=== PATIENT | female | born 1955 | race Two or more races ===

== ENCOUNTER → 2024-02-27 | Outpatient (CLI) | payer MEDICARE, MEDICAID, SELFPAY ==
[2024-02-27 10:38] LABS: Glucose Estimated Average 160 mg/dL (80-131); Hemoglobin A1C 7.2 % Hgb (4.8-6.0)
== END | disposition home or self-care (01) ==
PROVIDERS: PCP Family Medicine; Referring Provider Family Medicine; Visit Provider Family Medicine
DX: E11.65 Type 2 diabetes mellitus with hyperglycemia (principal)
CPT/HCPCS: 36415; 83036

== ENCOUNTER 2024-03-11 11:36 | Inpatient (IN) | payer MEDICARE, MEDICAID, SELFPAY ==
[2024-03-11] VITALS (10 sets, daily range): BP systolic 110–152; BP diastolic 68–79; PULSE 86–105; RESP 17–99; TEMP 36.1–37.2; O2SAT 93–98; BMI 31.3
--- NOTE | 2024-03-11 11:54 | XR_ITS ---
Examination: CT brain head without contrast. 2-D sagittal coronal reconstructions Date and time of exam:March 11, 2024 1202 hours INDICATIONS: Patient tripped and fell today with injury to the head, head pain CTDI: vol (mGy):45.7 DLP: (mGycm):942 Technique: Multiple CT axial sections of the brain have been obtained, 5 mm slice thickness. Contrast has not been administered. 2-D sagittal, coronal reconstructions have been obtained Low dose protocols were performed. One or more of the following dose reduction techniques were used; automated exposure control, adjustment of the mA and/or KV according to patient size, use of iterative reconstruction technique. Findings: No significant ventricular enlargement. Soft tissue left posterior scalp swelling Posterior right and left cerebellar tentorium, coronal image 33 shows mild thickening, 2 mm No mass effect or midline shift Basal cisterns are not remarkable. Fourth ventricle is midline. Cranial vault intact. Impression: Suspicious for mild subdural hemorrhage involving the posterior right and left cerebellar tentorium Recommend close clinical observation and short-term follow-up 02/13/[address] brain scan No mass effect
--- NOTE | 2024-03-11 11:54 | XR_ITS ---
Examination: CT cervical spine without contrast 2-D sagittal reconstructions 2-D coronal reconstructions 3-D reconstructions. Exam date and time:March 11, 2024 1202 hours INDICATIONS: Patient fell today with injury to the head and neck, head pain neck pain CTDI:vol (mGy) 7.37 DLP: (mGycm) 148 Technique: Multiple 2 mm axial sections of the cervical spine have been obtained. The coronal and sagittal reconstructions have been obtained. 3-D reconstructions have been obtained. Low dose protocols were performed. One or more of the following dose reduction techniques were used; automated exposure control, adjustment of the mA and/or KV according to patient size, use of iterative reconstruction technique. Findings: Axial sections demonstrate intact base of the skull. C1 exhibit satisfactory relationship to the odontoid. No acute cervical vertebral body fracture seen. Alignment posterior spinous processes satisfactory. Impression: No acute cervical fracture.
--- NOTE | 2024-03-11 12:35 | PD.EDRME ---
Rapid Medical Screening Exam RME Arrival date/time: 03/11/24 11:36 69-year-old female presents emergency department with complaints of a slip and fall falling and hitting posterior head. + Hematoma noted to posterior head. I have greeted and performed a focused initial assessment of this patient. Initial appropriate labs ordered at this time. A comprehensive ED assessment and evaluation of the patient and analysis of all test and completion of medical decision making process will be conducted by additional ED provider. Chief Complaint: Fall Time Seen by Provider: 03/11/24 11:44 Vital signs: Vital Signs Temperature 98.3 F 03/11/24 11:46 Pulse Rate 94 03/11/24 11:46 Respiratory Rate 19 03/11/24 11:46 Blood Pressure 123/68 03/11/24 11:46 Pulse Oximetry (%) 98 03/11/24 11:46 Oxygen Delivery Method Room Air 03/11/24 11:46
--- NOTE | 2024-03-11 12:36 | XR_ITS ---
Examination: PA lateral chest 2 views TECHNIQUE: Upright PA lateral chest 2 views Exam date and time: March 11, 2024 1304 hours INDICATIONS: Patient tripped and fell today with injury to the chest, chest pain FINDINGS: Normal heart size No pneumothorax Minor subsegmental atelectasis left lower lung zone Old deformity left clavicle Increased AP dimension chest with mild kyphosis dorsal spine IMPRESSION: No pneumothorax pulmonary contusion or hemothorax
--- NOTE | 2024-03-11 12:36 | EKG_ITS ---
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
[2024-03-11 12:54] LABS: Basophils # (Auto) 0.1 Thou/mm3 (0.0-0.2); Basophils % (Auto) 1 % (0-2.5); Eosinophils # (Auto) 0.1 Thou/mm3 (0.0-0.5); Eosinophils % (Auto) 1 % (0-10); Hemoglobin 13.9 g/dL (12.0-16.0); Immature Granulocytes % (Auto) 0 % (0-0); Immature Granulocytes Auto 0.03 Thou/mm3 (0.00-0.00); Lymphocytes # (Auto) 1.4 Thou/mm3 (1.0-4.8); Lymphocytes % (Auto) 15 % (10-50); Mean Corpuscular HGB Conc 33.1 g/dl (31.0-37.0); Mean Corpuscular Hemoglobin 30.1 pg (25.0-35.0); Mean Corpuscular Volume 91 fL (80-100); Monocytes # (Auto) 0.6 Thou/mm3 (0.0-0.8); Monocytes % (Auto) 6 % (0-12); Neutrophils # (Auto) 7.6 Thou/mm3 (1.8-7.7); Neutrophils % (Auto) 78 % (37-80); Nucleated Red Blood Cell % 0 /100 WBC (0); Platelet Count 249 Thou/mm3 (140-440); Red Blood Count 4.62 Miln/mm3 (4.00-5.20); White Blood Count 9.7 Thou/mm3 (3.6-11.0)
--- NOTE | 2024-03-11 12:58 | EDNOTE_ITS ---
ED Fall Injury RME/HPI General Chief Complaint: Fall Stated Complaint: TRIP/FALL HIT BACK OF HEAD, NO LOC Time Seen by Provider: 03/11/24 11:44 Arrival date/time: 03/11/24 11:36 RME / HPI RME / HPI Narrative: 03/11/24 11:36 69-year-old female presents emergency department with complaints of a slip and fall falling and hitting posterior head. + Hematoma noted to posterior head. I have greeted and performed a focused initial assessment of this patient. Initial appropriate labs ordered at this time. A comprehensive ED assessment and evaluation of the patient and analysis of all test and completion of medical decision making process will be conducted by additional ED provider. DR. SARKAR MAIN ED EVALUATION 69 year old female presents to the ED for evaluation after fall today. States she was walking when she slipped and fell backwards, striking the back of her head on tile le in her home. States since the fall has had a headache, mostly to the back of her head, that is worse with turning her head. No other injuries or complaints reported. Patient denies any taking any blood thinners. Related Data Home Medications ?Medication ?Instructions ?Recorded ?Confirmed losartan 50 mg tablet 50 mg PO QDAY 03/16/18 03/11/24 alendronate 70 mg tablet (Fosamax) 70 mg PO QWEEK 05/14/18 03/11/24 atorvastatin 40 mg tablet 40 mg PO HS 06/17/23 03/11/24 celecoxib 200 mg capsule 200 mg PO DAILY 06/17/23 06/17/23 hydroxyzine HCl 25 mg tablet 25 mg PO Q12HR 06/17/23 06/17/23 semaglutide 1 mg/dose (4 mg/3 mL) 1 mg subcut QWEEK 06/17/23 06/17/23 subcutaneous pen injector (Ozempic) cholecalciferol (vitamin D3) 50 03/11/24 mcg (2,000 unit) capsule empagliflozin 12.5 mg-metformin tab 03/11/24 1,000 mg tablet (Synjardy) empagliflozin 12.5 mg-metformin tab 03/11/24 03/11/24 1,000 mg tablet (Synjardy) ferrous sulfate 325 mg (65 mg mg 03/11/24 iron) tablet Allergies Allergy/AdvReac Type Severity Reaction Status Date / Time No Known Allergies Allergy Verified 03/11/24 11:38 Review of Systems Review of Systems Narrative Review of Systems: GEN: No fever, no chills, no weight loss EYES: No discharge, no visual changes, no pain HEENT: +struck the back of head on tile le. No ear pain, no congestion, no sore throat PULM: No shortness of breath, no cough, no congestion CV: No chest pain, no dyspnea on exertion, no palpitations GI: No nausea, no vomiting, no diarrhea, no pain, no constipation : No frequency, no urgency, no dysuria MUSC/SKEL: No joint pain, no back pain SKIN: No rash PSYCH: No hallucinations, no depression HEME/LYMPH: No easy bleeding or bruising tendencies NEURO: No weakness, + headache Past Medical History Past Medical History NEUROLOGIC: Positive Migraine CARDIAC: Positive Cardiac Disorders, Hypercholesterolemia and Hypertension GASTROINTESTINAL: Positive Gastrointestinal Disorders and Gastroesophageal Reflux Disease GENITOURINARY: Positive Genitourinary Disorders (urinary frequency) MUSCULOSKELETAL: Positive Musculoskeletal Disorders and Arthritis ENDOCRINE: Positive Endocrine Disorders and Diabetes Mellitus Type 2 HEMATOLOGIC: Positive Anemia PSYCHO/SOCIAL: Positive Depression Family History FAMILY HISTORY: Positive Family Cardiac Disorders Social History SMOKING STATUS: Never smoker ED Exam Narrative Physical exam: GENERAL APPEARANCE: alert and oriented x 4, well-developed, well-nourished, no acute distress HEENT: Normocephalic, edema to the back of head, no deformity, ecchymosis consistent with developing hematoma; pupils equal, round, reactive to light; EOMI; mucous membranes pink, moist; oropharynx clear NECK: Supple LUNGS: CTABL; no wheezes, no rales, no rhonchi HEART: Regular rate, regular rhythm; normal S1, S2; no murmurs ABDOMEN: non distended; normal BS; soft, no tenderness, no guarding, no raymon ound; no masses, no organomegaly, no hernia BACK: no CVA tenderness EXTREMITIES: atraumatic; no edema NEUROLOGIC: awake; alert and oriented x4; cranial nerves II-XII grossly intact; no focal sensory or motor deficits PSYCHIATRIC: appropriate mood and affect SKIN: warm, dry, normal color; no rashes Course Course Course Narrative: 1305: I discussed todays head CT results with both patient and daughter at bedside. Advised we would monitor the patient and repeat the head CT in 2 hours. Quality Measures none Orders Category Date Time Status COVID-19 Screening Questionnaire NOW Care 03/11/24 18:20 Active Decision to Admit X1 Care 03/11/24 18:20 Completed EKG (ED ONLY) *Do not use* NOW Care 03/11/24 12:37 Completed Consult to Neurology / Tele-Neurology Stat Cons 03/11/24 18:19 Active Referral Care Management Routine Cons 03/11/24 15:[address] cervical spine wo con Stat Exams 03/11/24 11:[address] head/brain wo con Stat Exams 03/11/24 11:[address] head/brain wo con Stat Exams 03/11/24 15:19 Completed EKG (ED Only) Stat Exams 03/11/24 12:36 Draft XR chest 2V Stat Exams 03/11/24 12:36 Completed CBC Stat Lab 03/11/24 12:44 Completed CMP [Comprehensive Metabolic Panel] Stat Lab 03/11/24 12:44 Completed PT [Prothrombin Time with INR] Stat Lab 03/11/24 12:44 Completed Troponin I Stat Lab 03/11/24 12:44 Completed HYDROcodone*/APAP 5/325 [[place] 5/325] Med 03/11/24 14:59 Discontinued 1 tab PO X1 ONE Morphine Inj Med 03/11/24 13:04 Discontinued 2 mg IVP X1 ONE Ondansetron Inj [Zofran Inj] Med 03/11/24 13:04 Discontinued 4 mg IV X1 ONE Vital Signs Vital signs: Vital Signs Temperature 98.3 F 03/11/24 11:46 Pulse Rate 94 03/11/24 11:46 Respiratory Rate 19 03/11/24 11:46 Blood Pressure 123/68 03/11/24 11:46 Pulse Oximetry (%) 98 03/11/24 11:46 Oxygen Delivery Method Room Air 03/11/24 11:46 Pulse ox is 98% on room air which is adequate. Fall MDM Narrative MDM Narrative:: Mirella Darby am scribing for and in the presence of Dr. Sarkar. Patient data External records reviewed:: [facility] previous records (I reviewed ED visit on 05/04/2019) Clinical information provided by:: patient Social determinants that could affect healthcare access:: none Patient has the following chronic illnesses:: Hypertension, diabetes, hyperlipidemia How is presenting disease/condition affected by chronic disease/condition?: exacerbated by Evaluation data The following diagnostics were reviewed and interpreted by me:: lab results, radiology exam(s) and EKG tracing(s) (sinus rhythm, rate 74, no STEMI, no previous EKG for comparison,) Lab and/or radiology exams considered but not ordered:: None Interpretation Summary: Ordering Physician: Jordana Prince Date of Service: 03/11/24 Procedure(s): CT cervical spine wo con Accession Number(s): [id number] cc: Jacques Hair MD; Violet Garay MD; Jordana Prince~ Examination: CT cervical spine without contrast 2-D sagittal reconstructions 2-D coronal reconstructions 3-D reconstructions. Exam date and time:March 11, 2024 1202 hours INDICATIONS: Patient fell today with injury to the head and neck, head pain neck pain CTDI:vol (mGy) 7.37 DLP: (mGycm) 148 Technique: Multiple 2 mm axial sections of the cervical spine have been obtained. The coronal and sagittal reconstructions have been obtained. 3-D reconstructions have been obtained. Low dose protocols were performed. One or more of the following dose reduction techniques were used; automated exposure control, adjustment of the mA and/or KV according to patient size, use of iterative reconstruction technique. Findings: Axial sections demonstrate intact base of the skull. C1 exhibit satisfactory relationship to the odontoid. No acute cervical vertebral body fracture seen. Alignment posterior spinous processes satisfactory. Impression: No acute cervical fracture. Dictated By: Jacques Hair MD Signed By: <Electronically signed by Jacques Hair MD in OV> 03/11/24 1225 ==== Ordering Physician: Jordana Prince Date of Service: 03/11/24 Procedure(s): CT head/brain wo con Accession Number(s): [id number] cc: Jacques Hair MD; Violet Garay MD; Jordana Prince~ Examination: CT brain head without contrast. 2-D sagittal coronal reconstructions Date and time of exam:March 11, 2024 1202 hours INDICATIONS: Patient tripped and fell today with injury to the head, head pain CTDI: vol (mGy):45.7 DLP: (mGycm):942 Technique: Multiple CT axial sections of the brain have been obtained, 5 mm slice thickness. Contrast has not been administered. 2-D sagittal, coronal reconstructions have been obtained Low dose protocols were performed. One or more of the following dose reduction techniques were used; automated exposure control, adjustment of the mA and/or KV according to patient size, use of iterative reconstruction technique. Findings: No significant ventricular enlargement. Soft tissue left posterior scalp swelling Posterior right and left cerebellar tentorium, coronal image 33 shows mild thickening, 2 mm No mass effect or midline shift Basal cisterns are not remarkable. Fourth ventricle is midline. Cranial vault intact. Impression: Suspicious for mild subdural hemorrhage involving the posterior right and left cerebellar tentorium Recommend close clinical observation and short-term follow-up 02/13/[address] brain scan No mass effect Dictated By: Jacques Hair MD Signed By: <Electronically signed by Jacques Hair MD in OV> 03/11/24 1227 Procedure(s): XR chest 2V Accession Number(s): [id number] cc: Jacques Hair MD; Violet Garay MD; Jordana Prince~ Examination: PA lateral chest 2 views TECHNIQUE: Upright PA lateral chest 2 views Exam date and time: March 11, 2024 1304 hours INDICATIONS: Patient tripped and fell today with injury to the chest, chest pain FINDINGS: Normal heart size No pneumothorax Minor subsegmental atelectasis left lower lung zone Old deformity left clavicle Increased AP dimension chest with mild kyphosis dorsal spine IMPRESSION: No pneumothorax pulmonary contusion or hemothorax Dictated By: Jacques Hair MD Medications / Prescriptions Medications or Prescriptions considered but not ordered:: None Medication administrations:: Medication Administration History Acetaminophen (Acetaminophen 325 Mg Tablet) 650 mg PO Q6H PRN PRN Reason: Fever >100.3 or Pain 1-3 Stop: 04/10/24 19:39 Hydrocodone Bitart/Acetaminophen (Hydrocodone/Apap 5/325 Tablet) 1 tab PO Q4HR PRN PRN Reason: PAIN SCALE 4-10(Mod-Sev Stop: 03/16/24 19:39 Albuterol/Ipratropium (Albuterol/Ipratropium (Duoneb) Rt Yoanna 3 Ml Nebu) 3 ml INH Q2HR PRN PRN Reason: SHORTNESS OF BREATH OR WHEEZE Stop: 04/10/24 19:39 Atorvastatin Calcium (Atorvastatin Calcium 20 Mg Tablet) 40 mg PO HS DEBBIE Stop: 04/10/24 20:59 Last Admin: 03/11/24 20:49 Dose: 40 mg Documented By: MICHAEL Dextrose (Dextrose 50%-Water Inj 50 Ml Syringe) 50 ml IV Q15MIN PRN PRN Reason: BG <50 OR BG <70 & pt unresponsive Stop: 04/10/24 20:03 Glucagon (Glucagon Inj 1 Mg Vial) 1 mg IM Q15MIN PRN PRN Reason: BG <70, and no IV access Insulin Human Lispro (Insulin Lispro (Admelog) 1 Unit/0.01 Ml Unit) 0 unit SC [facility]; Protocol Stop: 04/10/24 20:59 Last Admin: 03/11/24 20:55 Dose: 4 unit Documented By: MICHAEL Co-signed By: JAZ Comments: BG = 345 mg/dL Labetalol HCl (Labetalol Inj 5 Mg/Ml Vial 20 Ml) 10 mg IVP Q2H PRN PRN Reason: SBP >150 Stop: 04/10/24 19:32 Losartan Potassium (Losartan Potassium 25 Mg Tablet) 50 mg PO BID DEBBIE Stop: 04/10/24 19:34 Last Admin: 03/11/24 20:50 Dose: 50 mg Documented By: MICHAEL Morphine Sulfate (Morphine Sulf Inj 10 Mg/Ml Vial) 2 mg IVP Q4H PRN PRN Reason: BREAKTHROUGH PAIN Stop: 03/16/24 19:39 Ondansetron HCl (Ondansetron Inj 2 Mg/Ml Inj 2 Ml) 4 mg IV Q6H PRN; Protocol PRN Reason: NAUSEA OR VOMITING Stop: 04/10/24 19:39 Pantoprazole Sodium (Pantoprazole 40 Mg Tablet) 40 mg PO QDAY DEBBIE Stop: 04/11/24 08:59 Sennosides (Senna Tablet) 1 tab PO QDAY DEBBIE; Protocol Stop: 04/11/24 08:59 Discontinued Medications Hydrocodone Bitart/Acetaminophen (Hydrocodone/Apap 5/325 Tablet) 1 tab PO X1 ONE Stop: 03/11/24 15:00 Last Admin: 03/11/24 15:44 Dose: 1 tab Documented By: BERLIN Labetalol HCl (Labetalol Inj 5 Mg/Ml Vial 20 Ml) 10 mg IVP Q6H PRN PRN Reason: SBP >150 Stop: 04/10/24 19:32 Losartan Potassium (Losartan Potassium 25 Mg Tablet) 50 mg PO BID DEBBIE Stop: 04/10/24 20:59 Morphine Sulfate (Morphine Sulf Inj 10 Mg/Ml Vial) 2 mg IVP X1 ONE Stop: 03/11/24 13:05 Last Admin: 03/11/24 13:16 Dose: 2 mg Documented By: BERLIN Ondansetron HCl (Ondansetron Inj 2 Mg/Ml Inj 2 Ml) 4 mg IV X1 ONE Stop: 03/11/24 13:05 Last Admin: 03/11/24 13:16 Dose: 4 mg Documented By: BERLIN See above Consultations Consultation(s) initiated? (list below): Yes Consultation #1 (Physician, Specialty, Details): Discussed test HPI, PMHx, lab, radiology results and/or management with spitalist. Will admit for further evaluation and management. Accepts patient for admission. Time: 18:00 Diagnosis Fall Differential Diagnosis: syncope and concussion with loss of consciousness Most likely diagnosis given after review of the tests above:: As noted below. Admission Indicated Admission indicated?: indicated Admission Request Was there a request for admission?: Yes Admission Attestation Admission request attestation: Discussed case with [] from Hospitalist service regarding admission. Discussed patients ED course, exam findings, labs, and radiology results. The Hospitalist [agrees,declines] to accept the patient for admission. Disposition Plan Disposition Plan: Admit Discharge Plan Plan Patient Disposition: Admit Acute Care w/in Hospital
[2024-03-11 13:07] LABS: Prothrombin Time 10.7 Seconds (9.0-12.2)
[2024-03-11 13:14] LABS: Alanine Aminotransferase 25 U/L (10-49); Albumin, Serum 4.8 gm/dL (3.4-4.8); Albumin/Globulin Ratio 1.8 (1.2-2.2); Alkaline Phosphatase 64 U/L (46-116); Anion Gap 9 (7-16); Aspartate Amino Transferase 25 U/L (0-34); BUN/Creatinine Ratio 31 Ratio (12-20); Bilirubin,Total 0.3 mg/dL (0.3-1.2); Blood Urea Nitrogen 22 mg/dL (9-23); Calcium 10.5 mg/dL (8.3-10.6); Calcium (Corrected) 10.5 mg/dL (8.5-10.1); Carbon Dioxide 25.9 mMol/L (20.0-31.0); Chloride 103 mMol/L (98-107); Creatinine (Component) 0.7 mg/dL (0.6-1.3); Estimated Creatinine Clearance 64.7 mL/min (>60); Globulin 2.7 gm/dL (2.3-3.5); Glucose 231 mg/dL (74-106); Osmolality,Calculated 285 (275-295); Potassium 4.8 mMol/L (3.4-5.1); Sodium 138 mMol/L (136-145); Total Protein 7.5 gm/dL (5.7-8.2); Troponin I < 0.002 ng/mL (0.0-0.045); eGFR > 60 See Note
[2024-03-11] MEDS: ONDANSETRON INJ 2 MG/ML INJ 2 ML 4 MG IV (13:16)
[2024-03-11] MEDS: MORPHINE SULF INJ 10 MG/ML VIAL 2 MG IVP (13:16)
--- NOTE | 2024-03-11 15:19 | XR_ITS ---
Examination: CT brain head without contrast. 2-D sagittal coronal reconstructions Date and time of exam:March 11, 2024 1531 hours INDICATIONS: Patient fell today with mildly hyperdense right and left cerebellar tentorium on CT brain scan CTDI: vol (mGy):46.8 DLP: (mGycm):932 Technique: Multiple CT axial sections of the brain have been obtained, 5 mm slice thickness. Contrast has not been administered. 2-D sagittal, coronal reconstructions have been obtained Low dose protocols were performed. One or more of the following dose reduction techniques were used; automated exposure control, adjustment of the mA and/or KV according to patient size, use of iterative reconstruction technique. Findings: No significant ventricular enlargement. Stable mild subdural hemorrhage along the right and left cerebellar tentorium No mass effect or midline shift Basal cisterns are not remarkable. Fourth ventricle is midline. Cranial vault intact. Impression: Stable minimal subdural hematoma along the right and left cerebellar tentorium Recommend 24-hour follow-up CT brain scan
[2024-03-11] MEDS: HYDROcodone/APAP 5/325 TABLET 1 TAB PO ×2 (15:44→23:14)
--- NOTE | 2024-03-11 16:27 | PC.CM ---
Addendum entered by Bing Cagle RN 03/11/24 18:43: I spoke to DR. Violet alvarez and I let her know [facility] gave recommendations to Dr Sarkar and patient does not need to be transferred at this time. Dr. Yoon alvarez was going to reach out to our hosptalist. Addendum entered by Bing Cagle RN 03/11/24 17:24: 1720 I spoke to the transfer nurse at [facility] and she they did receive the images I pushed over and the paperwork. She states they sent everything to their doctor and they are waiting for a call back. [address] Sarkar and she states she did speak to the transfer nurse earlier. Original Note: 1552 I received a referral to transfer patient for neurosurgery for brain bleed. I faxed information to [facility] and I pushed over images. I will start packet and make a CD.
--- NOTE | 2024-03-11 18:13 | EVENTNT_ITS ---
<Statement entered by Jv Templeton MD - 03/16/24 12:14> I reviewed above note and agree with findings and plans. I have also personally examined the patient with medicine team and went over assessment and plan with medical team including qa intern and resident physician. Documentation for date of: 03/11/24 Event Note Event Note: Were called by ER physician for possible admission of 69-year-old female with past medical history of DM2, hypertension, and hyperlipidemia due to subdural hematoma after a ground-level fall. Patient's labs were stable including hemoglobin at 13.9, but initial imaging which included head CT was suspicious for a subdural hemorrhage in the posterior right and left cerebellar tentorium. Repeat head CT confirmed the subdural hematoma and say that it was stable. ED physician spoke with [facility] for possible transfer, but as per ED physician she was told that there was no neurosurgical intervention needed at this time and that patient should be monitored for the next 24 hours. We will ask ED physician to consult in-house neurology to see if patient can be admitted to the hospital prior to decision to admit at this time. Will sign off to night team. Case disclosed with Attending Dr. Jareth Short PGY1
--- NOTE | 2024-03-11 18:17 | EDNOTE_ITS ---
Emergency Room Addendum Addendum Narrative: [facility] reports the patient needs a repeat CT scan in [address] Sarkar discussed with Medicine team. 1820: PÉREZ Tolbert spoke to Madi.who will consult, Case discussed and the her, and feels the patient can be admitted to the hospital. Repeat Exam: Pt GCS 15. Improved pain. Dr. Whalen, the resident card tape converter operator will accept the patient for admission.
--- NOTE | 2024-03-11 19:20 | PC.NURSE ---
First contact with pt in Room 3, pt in gown, connected to bedside ekg monitor tech, call light within reach. Pt's daughter and admitting MD at bedside.
--- NOTE | 2024-03-11 19:48 | ESHP_ITS ---
Documentation for date of: 03/11/24 HPI History of Present Illness Chief complaint: Ground Level Fall History of present illness: HPI: Patient is Liberian-speaking and interview facilitated by registered healthcare workers' compensation commissioner. Patient is a 69-year-old female with a past medical history significant for essential hypertension, spp-dmwlips-naxrhpyah diabetes mellitus type 2 [7.2%] , hyperlipidemia, osteoarthritis and osteoporosis on alendronate presenting today with a chief complaint of a ground-level fall. Patient follows up with PCP Dr. Violet Piña. According to the patient earlier today around 10 AM she was carrying a basket of laundry into her house when she slipped and fell backwards to the ground hitting the back of her head. Afterward patient got up and applied an ice pack to the back of her head, her daughter reached home approximately 1 hour after and found her sitting with an ice pack. Patient said since the incident she had a 10/10 occipital headache initially, no radiation, no vomiting, no photophobia, no visual changes and no radiation. Currently she says her headache has subsided. Patient also endorsed some dizziness initially after getting up from her fall, however now this has spontaneously subsided. She was able to ambulate to the restroom while in the emergency department without assistance and without dizziness. ED course: BP 131/73, pulse 93, RR 22, temp 98.1 F, SpO2 95% on room air. Labs significant for Hb 13.9, HCT 42, PLT 249, corrected Ca 10.[address] scan showed posterior right and left cerebellar tentorium mild thickening [2 mm] suspicios for mild subdural hematoma. Repeat head CT showed a stable minimal subdural hematoma along the right and left cerebellar tentorium. In the ED patient received morphine 2 Mg IV x 1, ondansetron 4 Mg IV x 1 and [place] 1 tab p.o. x 1. Patient will be admitted for treatment and management of subdural hematoma. Neurologist, Dr. Simmons consulted and is closely following the case. Appreciate recommendations. Review of Systems Review of Systems Narrative Review of Systems: GENERAL: Denies fever/chills or diaphoresis. HEENT: Denies headaches or visual changes. Denies discharge. Neuro: As above CARDIO: Denies chest pain or palpitations. PULM: Denies SOB, couging or wheezing. GI: Denies abdominal pain, N/V/C/D. Reports having BMs. URO: Denies buring/itching/pain/urinary changes. MSK/EXT/SKIN: Denies joint/skeletal/muscle pain, issues/changes in upper or lower extremities, itchiness, or superficial pain. PSYCH: Cooperative, pleasant mood & affect. The rest of the review of systems is otherwise negative. Past Medical History Past Medical History Comments PMH COMMENT: Past medical history: ? Osteoarthritis ? Osteoporosis ? Essential hypertension ? Rzj-whmqmwr-oqstlcnva diabetes mellitus type 2 ? Hyperlipidemia Medication list: ? Alendronate 70 Mg p.o. weekly ? Atorvastatin 40 Mg p.o. at bedtime ? Losartan 50 Mg p.o. twice daily ? Synjardy 1 tab p.o. daily ? Tradjenta 5 Mg p.o. daily Past surgical history: - Cholecystectomy 2001 Allergies: NKFDA Social history: Occupational History: Currently retired. Previously worked in a [employer] Education Level: Attended college, did not graduate Marital Status: with 2 kids Tobacco use: Denies ETHO use: Denied Illicit drug use: Denies Social History Note: lives with and daughter Family History: -Father : DM, HTN - Mother : Brain aneurysm in her late 60's Exam Vital Signs Temp Pulse Resp BP Pulse Ox O2 Del Method 98.1 F 101 H 17 132/69 H 96 Room Air 03/11/24 19:20 03/11/24 19:20 03/11/24 19:20 03/11/24 19:20 03/11/24 19:20 03/11/24 19:20 Narrative Exam Constitutional Alert, oriented x 3 and comfortable. Elderly female, GCS 15/15. HEENT Vision grossly intact. Patent nares. Trachea midline Respiratory Chest normal on inspection and clear auscultation bilaterally Cardiovascular S1 and S2 audible, RRR. No murmurs carotid bruit. No gross JVD. Abdominal Soft and non tender to palpation in all quadrants. BS + Genitourinary No bladder tenderness, no flank pain. Normal to palpation Musculoskeletal Extremities tone within normal limits. No LE edema. Neurological CN II - XII grossly intact. Extremity motor and sensation grossly intact. V ision intact, NIHSS 0 Skin Warm, dry and intact. 3 x 5 cm purpura occipital region, no signs of hemorrhage. Psychiatric Patient has good affect, is cooperative Results: Labs 03/11/24 12:44 03/11/24 12:44 Labs: Short CBC 03/11/24 Range/Units 12:44 WBC 9.7 (3.6-11.0) Thou/mm3 Hgb 13.9 (12.0-16.0) g/dL Hct 42.0 (36.0-46.0) % Plt Count 249 (140-440) Thou/mm3 BMP 03/11/24 12:44 Sodium 138 Potassium 4.8 Chloride 103 Carbon Dioxide 25.9 BUN 22 Creatinine 0.7 Glucose 231 H Calcium 10.5 Cardiac Enzymes 03/11/24 Range/Units 12:44 Troponin I < 0.002 (0.0-0.045) ng/mL Liver Function 03/11/24 Range/Units 12:44 Total Bilirubin 0.3 (0.3-1.2) mg/dL AST 25 (0-34) U/L ALT 25 (10-49) U/L Alkaline Phosphatase 64 (46-116) U/L Albumin 4.8 (3.4-4.8) gm/dL Quality Measures Quality Measures none Advance care planning discussed with:: patient Medications Home Medications and Allergies Home Medications ?Medication ?Instructions ?Recorded ?Confirmed ?Type losartan 50 mg tablet 50 mg PO QDAY 03/16/18 03/11/24 History alendronate 70 mg tablet (Fosamax) 70 mg PO QWEEK 05/14/18 03/11/24 History atorvastatin 40 mg tablet 40 mg PO HS 06/17/23 03/11/24 History cholecalciferol (vitamin D3) 50 50 mcg QDAY 03/11/24 03/11/24 History mcg (2,000 unit) capsule ferrous sulfate 325 mg (65 mg 325 mg QDAY 03/11/24 03/11/24 History iron) tablet Allergies Allergy/AdvReac Type Severity Reaction Status Date / Time No Known Allergies Allergy Verified 03/11/24 11:38 Visit Medications Acetaminophen (Acetaminophen 325 Mg Tablet) 650 mg PO Q6H PRN PRN Reason: Fever >100.3 or Pain 1-3 Stop: 04/10/24 19:39 Hydrocodone Bitart/Acetaminophen (Hydrocodone/Apap 5/325 Tablet) 1 tab PO Q4HR PRN PRN Reason: PAIN SCALE 4-10(Mod-Sev Stop: 03/16/24 19:39 Albuterol/Ipratropium (Albuterol/Ipratropium (Duoneb) Rt Yoanna 3 Ml Nebu) 3 ml INH Q2HR PRN PRN Reason: SHORTNESS OF BREATH OR WHEEZE Stop: 04/10/24 19:39 Labetalol HCl (Labetalol Inj 5 Mg/Ml Vial 20 Ml) 10 mg IVP Q2H PRN PRN Reason: SBP >150 Stop: 04/10/24 19:32 Losartan Potassium (Losartan Potassium 25 Mg Tablet) 50 mg PO BID [facility] Stop: 04/10/24 19:34 Morphine Sulfate (Morphine Sulf Inj 10 Mg/Ml Vial) 2 mg IVP Q4H PRN PRN Reason: BREAKTHROUGH PAIN Stop: 03/16/24 19:39 Ondansetron HCl (Ondansetron Inj 2 Mg/Ml Inj 2 Ml) 4 mg IV Q6H PRN; Protocol PRN Reason: NAUSEA OR VOMITING Stop: 04/10/24 19:39 Pantoprazole Sodium (Pantoprazole 40 Mg Tablet) 40 mg PO QDAY [facility] Stop: 04/11/24 08:59 Sennosides (Senna Tablet) 1 tab PO QDAY DEBBIE; Protocol Stop: 04/11/24 08:59 Discontinued Medications Hydrocodone Bitart/Acetaminophen (Hydrocodone/Apap 5/325 Tablet) 1 tab PO X1 ONE Stop: 03/11/24 15:00 Last Admin: 03/11/24 15:44 Dose: 1 tab Labetalol HCl (Labetalol Inj 5 Mg/Ml Vial 20 Ml) 10 mg IVP Q6H PRN PRN Reason: SBP >150 Stop: 04/10/24 19:32 Losartan Potassium (Losartan Potassium 25 Mg Tablet) 50 mg PO BID [facility] Stop: 04/10/24 20:59 Morphine Sulfate (Morphine Sulf Inj 10 Mg/Ml Vial) 2 mg IVP X1 ONE Stop: 03/11/24 13:05 Last Admin: 03/11/24 13:16 Dose: 2 mg Ondansetron HCl (Ondansetron Inj 2 Mg/Ml Inj 2 Ml) 4 mg IV X1 ONE Stop: 03/11/24 13:05 Last Admin: 03/11/24 13:16 Dose: 4 mg Assessment & Plan Plan Patient is a 69-year-old female with a past medical history significant for essential hypertension, bkx-nysodaj-dpjjuisao diabetes mellitus type 2 [7.2%] , hyperlipidemia, osteoarthritis and osteoporosis on alendronate presenting today with a chief complaint of a ground-level fall. Patient will be admitted for treatment and management of subdural hematoma. 1. Ground-level fall 2. Subdural hematoma 3. Headache?resolving 4. Dizziness?resolved Patient slipped and fell backwards hitting her head on the floor earlier today. Initially patient had a headache and dizziness which have now resolved. Initial head CT scan showed posterior right and left cerebellar tentorium mild thickening [2 mm] suspicios for mild subdural hematoma. Repeat head CT showed a stable minimal subdural hematoma along the right and left cerebellar tentorium. Neurology, Dr. Simmons was consulted and recommended interval CT scan in 24 hours. Plan: - Neuro checks q 4H - Head of bed elevated to 30 degrees - Swallow eval and bedside swallow screen ordered - PT/OT referrals placed - Seizure precautions in place - Interval head CT non- contrast ordered for 3 pm on 03/12/2024 - HbA1C, Lipid panel, TSH ordered - PRN Acetaminophen 650mg to avoid hyperthermia - PRN Labetaol 10 mg IV Q2 hrly for SBP > 150. Tight control of blood pressure to avoid hemorrhage - DVT Prophylaxis with SCDs - Neurology, Dr Simmons consulted and is closely following the case. Appreciate recommendations. 5. Essential hypertension 6. Hyperlipidemia On admission BP 123/68. Home medication losartan 50 Mg p.o. twice daily and atorvastatin 40 Mg p.o. at bedtime Plan: ? Resumed home medication losartan 50 Mg p.o. twice daily ? Resumed home medication atorvastatin 40 Mg p.o. at bedtime 7. Ynq-drxigvt-alhdfjxad diabetes mellitus type 2 Last HbA1c 7.2% February 2024 Home medication Synjardy 1 tab p.o. daily and Tradjenta 5 Mg p.o. daily. Plan: ? Low consistent carb diet ? SSI to cover for any blood glucose spikes 8. Osteoarthritis 9. Osteoporosis Patient takes Celebrex 200 Mg p.o. twice daily as needed as home medication and Aldendronate 70 Mg p.o. weekly Plan: ? Will start patient on hydrocodone/acetaminophen 5/325 1 tab p.o. every 4 hourly as needed for pain Health maintenance: Disposition: Neuro watch. Interval Head CT on 03/12/2024 Diet: Low consistent carb and Cardiac Lines: pIVs GI Prophylaxis: Pantoprazole Thrombo Prophylaxis: SCDs Code status: DNR Plan of care discussed with Attending Dr. Rayshawn Hill MD PGY 1 Attending Provider Attestation/Addendum Face to face evaluation was performed by me. I have personally seen and examined the patient. I discussed the assessment and plan with the entire medicine team. I reviewed available medical records, imaging studies, laboratory results. I agree with the above subjective data, objective findings, assessment and plan except as corrected by me or noted below Small subsdural hematoma ground level fall headache deue to above HTN essential -repeat CT stable, Outside NS was contacted did not recommend transfer Neurology consutled repeat CT tmr keep bP < 150 systolic resume home antihypertensive monitor neuro checks closely
[2024-03-11] MEDS: ATORVASTATIN CALCIUM 20 MG TABLET 40 MG PO (20:49)
[2024-03-11] MEDS: LOSARTAN POTASSIUM 25 MG TABLET 50 MG PO (20:50)
[2024-03-11] MEDS: INSULIN LISPRO (AdmeLOG) 1 UNIT/0.01 ML UNIT SC (20:55)
[2024-03-12] VITALS (13 sets, daily range): BP systolic 116–144; BP diastolic 61–87; PULSE 75–108; RESP 18–95; TEMP 36–36.1; O2SAT 92–96; BMI 30.4
[2024-03-12 06:04] LABS: Basophils # (Auto) 0.1 Thou/mm3 (0.0-0.2); Basophils % (Auto) 1 % (0-2.5); Eosinophils # (Auto) 0.1 Thou/mm3 (0.0-0.5); Eosinophils % (Auto) 2 % (0-10); Hematocrit 40.3 % (36.0-46.0); Hemoglobin 13.5 g/dL (12.0-16.0); Immature Granulocytes % (Auto) 0 % (0-0); Immature Granulocytes Auto 0.01 Thou/mm3 (0.00-0.00); Lymphocytes # (Auto) 2.2 Thou/mm3 (1.0-4.8); Lymphocytes % (Auto) 33 % (10-50); Mean Corpuscular HGB Conc 33.5 g/dl (31.0-37.0); Mean Corpuscular Hemoglobin 30.2 pg (25.0-35.0); Mean Corpuscular Volume 90 fL (80-100); Monocytes # (Auto) 0.7 Thou/mm3 (0.0-0.8); Monocytes % (Auto) 10 % (0-12); Neutrophils # (Auto) 3.5 Thou/mm3 (1.8-7.7); Neutrophils % (Auto) 54 % (37-80); Nucleated Red Blood Cell % 0 /100 WBC (0); Platelet Count 268 Thou/mm3 (140-440); RDW Standard Deviation 42.2 fL (36.4-46.3); Red Blood Count 4.47 Miln/mm3 (4.00-5.20); White Blood Count 6.6 Thou/mm3 (3.6-11.0)
[2024-03-12 06:10] LABS: Partial Thromboplastin Time 25.9 Seconds (22.0-36.0); Prothrombin Time 10.9 Seconds (9.0-12.2)
[2024-03-12 06:59] LABS: Anion Gap 8 (7-16); BUN/Creatinine Ratio 36 Ratio (12-20); Blood Urea Nitrogen 18 mg/dL (9-23); Calcium 9.8 mg/dL (8.3-10.6); Cardiac Risk Estimate 1.8 RATIO (3.7-5.6); Chloride 104 mMol/L (98-107); Cholesterol 146 mg/dL (132-200); Creatinine (Component) 0.5 mg/dL (0.6-1.3); Estimated Creatinine Clearance 89.4 mL/min (>60); Glucose 163 mg/dL (74-106); HDL Cholesterol 79 mg/dL (40-60); LDL Cholesterol,Calculated 48 mg/dL (0-130); Magnesium 1.8 mg/dL (1.6-2.6); Osmolality,Calculated 283 (275-295); Phosphorous 3.3 mg/dL (2.4-5.1); Potassium 4.4 mMol/L (3.4-5.1); Sodium 139 mMol/L (136-145); Thyroid Stimulating Hormone 1.17 uIU/mL (0.55-4.78); Triglycerides 96 mg/dL (30-150); eGFR > 60 See Note
[2024-03-12] MEDS: INSULIN LISPRO (AdmeLOG) 1 UNIT/0.01 ML UNIT SC ×4 (07:28→21:48)
[2024-03-12] MEDS: LOSARTAN POTASSIUM 25 MG TABLET 50 MG PO ×2 (08:01→21:47)
[2024-03-12] MEDS: PANTOPRAZOLE 40 MG TABLET PO (08:01)
[2024-03-12] MEDS: HYDROcodone/APAP 5/325 TABLET 1 TAB PO ×2 (08:06→17:58)
[2024-03-12] MEDS: SENNA TABLET 1 TAB PO (08:07)
--- NOTE | 2024-03-12 09:37 | PC.SS ---
Follow up note: Waiting for CT. Possible d/c today.
--- NOTE | 2024-03-12 15:00 | XR_ITS ---
Examination: CT brain head without contrast. 2-D sagittal coronal reconstructions Date and time of exam:March 12, 2024 1442 hrs. Comparison March 11, 2024 Indications: Patient fell March 11, 2024 with minimal subdural hemorrhage involving the right and left cerebellar tentorium CTDI: vol (mGy):47.1 DLP: (mGycm):970 Technique: Multiple CT axial sections of the brain have been obtained, 5 mm slice thickness. Contrast has not been administered. 2-D sagittal, coronal reconstructions have been obtained Low dose protocols were performed. One or more of the following dose reduction techniques were used; automated exposure control, adjustment of the mA and/or KV according to patient size, use of iterative reconstruction technique. Findings: No significant ventricular enlargement. There remains minimal subdural hemorrhage along the right cerebellar tentorium No mass effect or midline shift Basal cisterns are not remarkable. Fourth ventricle is midline. Cranial vault intact. Impression: No remains minimal subdural hemorrhage along the right cerebellar tentorium, 2 mm No new areas of hemorrhage density noted
--- NOTE | 2024-03-12 16:14 | PC.SS ---
SS met with patient regarding her d/c plan. Pt is alert/oriented. Pt was admitted for Subdural Hematoma. Pt confirmed demographic and contact information is correct on facesheet. Pt resides with and kids. Pt ambulates independently without assistance or DME. Pt is ok with all ADLs. Pt named her dtr, Erica Chicas medical decision maker if she is unable. SS provided verbal d/c options for home or SNF. Patient?s choice is to return home upon d/c. Pt does not have an advance directive, SS offered, and pt declined. Pt states she is diabetic, has glucometer, and test strips. Pt states he takes oral medication for her diabetes. Pt states she followed up with PCP in November 2023. D/C plan: Return home Next of Kin: Erica Chicas, dtr, phone# [phone] PCP: Dr. Violet Piña Address: Correct on facesheet
--- NOTE | 2024-03-12 18:15 | ESPR_ITS ---
Documentation for date of: 03/12/24 Senior resident attestation: Patient evaluated and examined at the bedside, plan of care discussed with rest of the team including my attending physician, except as noted. Patient admitted for small subdural hematoma, is alert and oriented x 3, reports no headache or confusion or dizziness or visual changes. Does not complain of any extremity weakness. Will continue to monitor, follow-up repeat head CT, neurology following the patient, recommends observing overnight and discharging in the morning if no worsening of clinical symptoms. Quresh PGY2 Subjective Subjective Interval history: 03/11: Patient is an overnight admit, patient is seen and examined at bedside this morning patient came into the ED because of a fall found to have subdural hematoma initially on presentation patient had a severe headache during examination today patient denies headache visual changes or nausea vomiting. Patient is also alert oriented x 3. repeat CT at 24 hours will be at 3 PM. The bruising at the site of hematoma on the scalp has not changed in size or color. It does not appears to be expanding. patient CBC and CMP is unremarkable and will continue to monitor for any changing symptoms if patient's CT is negative tomorrow she will be discharged home. Exam Vital Signs Temp Pulse Resp BP Pulse Ox O2 Del Method 96.9 F 75 19 129/75 95 Room Air 03/12/24 16:00 03/12/24 16:00 03/12/24 16:00 03/12/24 16:00 03/12/24 16:00 03/12/24 16:00 Narrative Exam GENERAL: A&Ox3 . Awake, Not in acute distress NEURO: no focal neurological deficits HEENT: Atraumatic, Normocephalic. mucous membranes moist. Eyes open, symmetrical, & clear HEART: Normal Heart Sounds LUNGS: Clear to auscultation with no wheezing or crackles. ABDOMEN: soft, non-distended, non-tender, bowel sounds heard, no guarding or rebound tenderness SKIN: No Rash or ecchymoses, 3 x 5 cm redness and bruising occipital region, no signs of hemorrhage. EXTREMITIES: No edema, tenderness, able to move all 4 extremities, pedal pulses palpated Objective Labs 03/13/24 05:30 03/13/24 05:30 Labs: Laboratory Results - last 24 hr 03/12/24 05:16 WBC 6.6 RBC 4.47 Hgb 13.5 Hct 40.3 MCV 90 MCH 30.2 MCHC 33.5 RDW Std Deviation 42.2 Plt Count 268 Neut % (Auto) 54 Lymph % (Auto) 33 [place] % (Auto) 10 Eos % (Auto) 2 Baso % (Auto) 1 Neut # (Auto) 3.5 Lymph # (Auto) 2.2 [place] # (Auto) 0.7 Eos # (Auto) 0.1 Baso # (Auto) 0.1 Immature Gran # (Auto) 0.01 H Absolute Nucleated RBC 0.00 Immature Gran % 0 Nucleated RBC % 0 PT 10.9 INR 1.0 APTT 25.9 Sodium 139 Potassium 4.4 Chloride 104 Carbon Dioxide 27.0 Anion Gap 8 BUN 18 Creatinine 0.5 L Estim Creat Clear Calc 89.4 eGFR > 60 BUN/Creatinine Ratio 36 H Glucose 163 H D Calculated Osmolality 283 Calcium 9.8 Phosphorus 3.3 Magnesium 1.8 Triglycerides 96 Cholesterol 146 LDL Cholesterol, Calc 48 HDL Cholesterol 79 H Cholesterol/HDL Ratio 1.8 L TSH 1.17 Quality Measures Quality Measures none Advance care planning discussed with:: patient Assessment & Plan Assessment Current Active Medications: Generic Name Dose Route Start Last Admin Trade Name Freq PRN Reason Stop Dose Admin Acetaminophen 650 mg 03/11/24 19:40 Acetaminophen 325 Mg Tablet PO 04/10/24 19:39 Q6H PRN Fever >100.3 or Pain 1-3 Hydrocodone Bitart/Acetaminophen 1 tab 03/11/24 19:40 03/12/24 17:58 Hydrocodone/Apap 5/325 Tablet PO 03/16/24 19:39 1 tab Q4HR PRN Administration PAIN SCALE 4-10(Mod-Sev Albuterol/Ipratropium 3 ml 03/11/24 19:40 Albuterol/Ipratropium (Duoneb) Rt Yoanna 3 Ml Nebu INH 04/10/24 19:39 Q2HR PRN SHORTNESS OF BREATH OR WHEEZE Atorvastatin Calcium 40 mg 03/11/24 21:00 03/11/24 20:49 Atorvastatin Calcium 20 Mg Tablet PO 04/10/24 20:59 40 mg HS DEBBIE Administration Dextrose 50 ml 03/11/24 20:04 Dextrose 50%-Water Inj 50 Ml Syringe IV 04/10/24 20:03 Q15MIN PRN BG <50 OR BG <70 & pt unresponsive Glucagon 1 mg 03/11/24 20:04 Glucagon Inj 1 Mg Vial IM Q15MIN PRN BG <70, and no IV access Insulin Human Lispro 0 unit 03/11/24 21:00 03/12/24 17:14 Insulin Lispro (Admelog) 1 Unit/0.01 Ml Unit SC 04/10/24 20:59 2 unit ACHS DEBBIE Administration Protocol Labetalol HCl 10 mg 03/11/24 19:35 Labetalol Inj 5 Mg/Ml Vial 20 Ml IVP 04/10/24 19:32 Q2H PRN SBP >150 Losartan Potassium 50 mg 03/11/24 19:35 03/12/24 08:01 Losartan Potassium 25 Mg Tablet PO 04/10/24 19:34 50 mg BID DEBBIE Administration Morphine Sulfate 2 mg 03/11/24 19:40 Morphine Sulf Inj 10 Mg/Ml Vial IVP 03/16/24 19:39 Q4H PRN BREAKTHROUGH PAIN Ondansetron HCl 4 mg 03/11/24 19:40 Ondansetron Inj 2 Mg/Ml Inj 2 Ml IV 04/10/24 19:39 Q6H PRN NAUSEA OR VOMITING Protocol Pantoprazole Sodium 40 mg 03/12/24 09:00 03/12/24 08:01 Pantoprazole 40 Mg Tablet PO 04/11/24 08:59 40 mg QDAY DEBBIE Administration Sennosides 1 tab 03/12/24 09:00 03/12/24 08:07 Senna Tablet PO 04/11/24 08:59 1 tab QDAY DEBBIE Administration Protocol Plan Patient is a 69-year-old female with a past medical history significant for essential hypertension, ofw-ittglzk-vbipokref diabetes mellitus type 2 [7.2%] , hyperlipidemia, osteoarthritis and osteoporosis on alendronate presenting today with a chief complaint of a ground-level fall. Patient will be admitted for treatment and management of subdural hematoma. # Ground-level fall #Subdural hematoma #Headache?resolving #Dizziness?resolved Patient slipped and fell backwards hitting her head on the floor earlier today. Initially patient had a headache and dizziness which have now resolved. Initial head CT scan showed posterior right and left cerebellar tentorium mild thickening [2 mm] suspicios for mild subdural hematoma. Repeat head CT showed a stable minimal subdural hematoma along the right and left cerebellar tentorium. Neurology, Dr. Simmons was consulted and recommended interval CT scan in 24 hours. Plan: - Neuro checks q 4H - Head of bed elevated to 30 degrees - Swallow eval and bedside swallow screen ordered - PT/OT referrals placed - Seizure precautions in place - Interval head CT non- contrast ordered for 3 pm on 03/12/2024 - HbA1C, Lipid panel, TSH ordered - PRN Acetaminophen 650mg to avoid hyperthermia - PRN Labetaol 10 mg IV Q2 hrly for SBP > 150. Tight control of blood pressure to avoid hemorrhage - DVT Prophylaxis with SCDs - Neurology, Dr Simmons consulted and is closely following the case. Appreciate recommendations. # Essential hypertension # Hyperlipidemia On admission BP 123/68. Home medication losartan 50 Mg p.o. twice daily and atorvastatin 40 Mg p.o. at bedtime Plan: ? Resumed home medication losartan 50 Mg p.o. twice daily ? Resumed home medication atorvastatin 40 Mg p.o. at bedtime # Jyb-xiarhgd-umrgzblvu diabetes mellitus type 2 Last HbA1c 7.2% February 2024 Home medication Synjardy 1 tab p.o. daily and Tradjenta 5 Mg p.o. daily. Plan: ? Low consistent carb diet ? SSI to cover for any blood glucose spikes #Osteoarthritis #Osteoporosis Patient takes Celebrex 200 Mg p.o. twice daily as needed as home medication and Aldendronate 70 Mg p.o. weekly Plan: ? Will start patient on hydrocodone/acetaminophen 5/325 1 tab p.o. every 4 hourly as needed for pain Health maintenance: Disposition: Neuro watch. Interval Head CT on 03/12/2024 Diet: Low consistent carb and Cardiac Lines: pIVs GI Prophylaxis: Pantoprazole Thrombo Prophylaxis: SCDs Code status: DNR Assessment and plan discussed with my senior resident Dr. Duran & attending physician Dr. Luz Krueger (PGY-1)- Internal medicine resident Attending Provider Attestation/Addendum Ashley Darby, , attest that I was physically present for the ruff portions of the service and evaluated the patient with the resident and I reviewed and discussed the case with the resident and agree with the resident's findings and plans of care as documented above Patient seen and evaluated this AM. She reports mild pain in the back of her head where she is noted to have a bump from the fall. She is otherwise neurologically intact and ambulating to the bathroom. Family states that they do not notice her to be off balance or any issues with speech. Pending repeat head CT and continue to monitor neuro status. If patient remains stable, anticipate DC in AM.
[2024-03-12] MEDS: ATORVASTATIN CALCIUM 20 MG TABLET 40 MG PO (21:47)
[2024-03-13] VITALS (8 sets, daily range): BP systolic 106–135; BP diastolic 66–76; PULSE 75–91; RESP 11–96; TEMP 36.1–36.4; O2SAT 94–96; BMI 30.4
--- NOTE | 2024-03-13 00:58 | PC.NURSE ---
Assumed care of patient presented self as primary nurse. Pt Macedonian speaking GCS 15 no s/s of distress or discomfort. HOB @30. No c/o pain safety reviewed call light with in reach.
[2024-03-13] MEDS: HYDROcodone/APAP 5/325 TABLET 1 TAB PO (01:53)
[2024-03-13 06:17] LABS: Basophils # (Auto) 0.1 Thou/mm3 (0.0-0.2); Basophils % (Auto) 1 % (0-2.5); Eosinophils # (Auto) 0.2 Thou/mm3 (0.0-0.5); Eosinophils % (Auto) 3 % (0-10); Hematocrit 41.2 % (36.0-46.0); Hemoglobin 13.7 g/dL (12.0-16.0); Immature Granulocytes % (Auto) 0 % (0-0); Immature Granulocytes Auto 0.01 Thou/mm3 (0.00-0.00); Lymphocytes # (Auto) 2.1 Thou/mm3 (1.0-4.8); Lymphocytes % (Auto) 36 % (10-50); Mean Corpuscular HGB Conc 33.3 g/dl (31.0-37.0); Mean Corpuscular Volume 90 fL (80-100); Monocytes # (Auto) 0.6 Thou/mm3 (0.0-0.8); Monocytes % (Auto) 10 % (0-12); Neutrophils % (Auto) 50 % (37-80); Nucleated Red Blood Cell % 0 /100 WBC (0); Platelet Count 232 Thou/mm3 (140-440); RDW Standard Deviation 41.9 fL (36.4-46.3); Red Blood Count 4.57 Miln/mm3 (4.00-5.20); White Blood Count 5.9 Thou/mm3 (3.6-11.0)
[2024-03-13 06:42] LABS: Anion Gap 9 (7-16); BUN/Creatinine Ratio 32 Ratio (12-20); Blood Urea Nitrogen 16 mg/dL (9-23); Calcium 9.5 mg/dL (8.3-10.6); Carbon Dioxide 25.1 mMol/L (20.0-31.0); Chloride 102 mMol/L (98-107); Creatinine (Component) 0.5 mg/dL (0.6-1.3); Estimated Creatinine Clearance 89.4 mL/min (>60); Glucose 184 mg/dL (74-106); Magnesium 1.9 mg/dL (1.6-2.6); Osmolality,Calculated 278 (275-295); Phosphorous 3.3 mg/dL (2.4-5.1); Potassium 3.7 mMol/L (3.4-5.1); Sodium 136 mMol/L (136-145); eGFR > 60 See Note
[2024-03-13] MEDS: INSULIN LISPRO (AdmeLOG) 1 UNIT/0.01 ML UNIT SC ×2 (07:26→11:38)
--- NOTE | 2024-03-13 08:40 | ESPR_ITS ---
Documentation for date of: 03/12/24 Subjective Subjective Interval history: Patient was seen in telemetry today. No new symptoms reported. No complaints of dizziness or headache. She is able to walk to the bathroom without any assistance. Exam - Neurology Vital Signs Temp Pulse Resp BP Pulse Ox O2 Del Method 97.6 F 80 16 129/73 94 L Room Air 03/13/24 08:00 03/13/24 08:00 03/13/24 08:00 03/13/24 08:00 03/13/24 08:00 03/13/24 08:00 Narrative Exam GENERAL APPEARANCE: Well hydrated, well-nourished in no acute distress. HEENT: Normocephalic, atraumatic, extraocular movements intact. Pupils: Equal reacting to light and accommodation NECK: Supple, no JVD or bruits. CARDIOVASULAR: Heart: S1, S2 heard, regular without S3-S4 or murmur no rubs or gallops. LUNGS/CHEST: Clear to auscultation bilaterally. No rails, rhonchi, or wheezing. Normal inspection. ABDOMEN: Soft, nontender, with normal bowel sounds. No pulsatile masses. No rebound, rigidity, or guarding. Normal inspection and palpation. EXTREMITIES: Normal inspection and palpation. No edema, clubbing or cyanosis. SKIN: Warm and dry without rashes. Normal inspection. MUSCULOSKELETAL: No cervical, thoracic, lumbar or midline bony tenderness. Normal inspection. NEURO: Alert, awake and oriented x3. Cranial nerves: II through XII grossly intact. Speech and language: Normal with no dysarthria or dysphasia. Motor system: Tone and bulk: Normal: Strength: 5 out of 5 in all 4 extremities; No pronator drift noted. Deep tendon reflexes: 2+ bilaterally symmetrical. Plantar reflex: Downgoing bilaterally. Sensory system: Intact to all modalities of sensation bilaterally. Coordination: Intact to rinjit-lhmt-uxjle and sqnc-phui-nswm test bilaterally. No ataxia, no dysmetria, or dysdiadochokinesia noted. No intention tremors noted. Gait: Normal. No signs of meningeal irritation noted. PSYCHIATRIC: Normal mood and affect. Objective Labs 03/13/24 05:30 03/13/24 05:30 Labs: Laboratory Results - last 24 hr 03/13/24 05:30 WBC 5.9 RBC 4.57 Hgb 13.7 Hct 41.2 MCV 90 MCH 30.0 MCHC 33.3 RDW Std Deviation 41.9 Plt Count 232 D Neut % (Auto) 50 Lymph % (Auto) 36 [place] % (Auto) 10 Eos % (Auto) 3 Baso % (Auto) 1 Neut # (Auto) 3.0 Lymph # (Auto) 2.1 [place] # (Auto) 0.6 Eos # (Auto) 0.2 Baso # (Auto) 0.1 Immature Gran # (Auto) 0.01 H Absolute Nucleated RBC 0.00 Immature Gran % 0 Nucleated RBC % 0 Sodium 136 Potassium 3.7 D Chloride 102 Carbon Dioxide 25.1 Anion Gap 9 BUN 16 Creatinine 0.5 L Estim Creat Clear Calc 89.4 eGFR > 60 BUN/Creatinine Ratio 32 H Glucose 184 H Calculated Osmolality 278 Calcium 9.5 Phosphorus 3.3 Magnesium 1.9 Assessment & Plan Assessment and plan (1) Subdural hematoma, acute: Status: Acute Assessment and plan: From a recent fall Repeat CT head from today showed unchanged findings of subdural hemorrhage: 2 mm in the tentorium cerebelli and Falx cerebri As she is asymptomatic, patient is neurologically stable for discharge tomorrow 03/13/2024. She can resume her home meds.
[2024-03-13] MEDS: PANTOPRAZOLE 40 MG TABLET PO (09:05)
[2024-03-13] MEDS: LOSARTAN POTASSIUM 25 MG TABLET 50 MG PO (09:05)
[2024-03-13] MEDS: SENNA TABLET 1 TAB PO (09:06)
[2024-03-13] MEDS: ACETAMINOPHEN 325 MG TABLET 650 MG PO (11:46)
--- NOTE | 2024-03-13 12:44 | PC.PT ---
03/13/2024 no additional PT recommended after PT eval
--- NOTE | 2024-03-13 19:04 | ESDS_ITS ---
<Statement entered by Ashley Escobar DO - 03/14/24 08:07> I, Ashley Escobar DO, attest that I was physically present for the ruff portions of the service and evaluated the patient with the resident and I reviewed and discussed the case with the resident and agree with the resident's findings and plans of care as documented above Planned Discharge Date 03/13/24 DS: Providers Provider Date of admission: 03/11/24 19:04 Primary care physician: Violet Piña MD Admitting Provider: Ga Tabares MD Attending Provider on Admission: Ashley Escobar DO Consults: 03/11/24 15:52 Referral Care Management Routine Comment: 03/11/24 18:19 Consult to Neurology / Tele-Neurology Stat Comment: Intracranial bleed Consulting Provider: Steven Simmons 03/11/24 19:47 Referral Physical Therapy Urgent Comment: Physician Instructions: Instructions: Subdural Hematoma. No longer dizzy Attending Provider on DC: Duncan Duran MD Discharging Provider: Duncan Duran MD DS: Diagnosis Problem List Completed Was Problem List Reviewed/Reconciled?: Yes Hospital Course Hospital Course Hospital course: Patient is a 69-year-old female with a past medical history significant for essential hypertension, [id number] diabetes mellitus type 2 [7.2%] , hyperlipidemia, osteoarthritis and osteoporosis on alendronate presenting today with a chief complaint of a ground-level fall. Patient will be admitted for treatment and management of subdural hematoma. Initial head CT scan showed posterior right and left cerebellar tentorium mild thickening [2 mm] suspicios for mild subdural hematoma. Repeat head CT showed a stable minimal subdural hematoma along the right and left cerebellar tentorium. Neurology, Dr. Simmons was consulted and recommended interval CT scan in [address] head at 24 hrs showed No remains minimal subdural hemorrhage along the right cerebellar tentorium, 2 mm . No new areas of hemorrhage density noted. The patient is stable, neurologically intact, ambulatory, afebrile and tolerating Per oral medications at the time of discharge.Cleared for discharge by neurology. The patient understood and agreed to the treatment plan. Follow up with Primary care physician with labs within 3-5 days of discharge. If symptoms persist or worsen, return to the Emergency Department. 1. Ground-level fall 2. Subdural hematoma 3. Headache?resolving 4. Dizziness?resolved Patient slipped and fell backwards hitting her head on the floor earlier today. Initially patient had a headache and dizziness which have now resolved. Initial head CT scan showed posterior right and left cerebellar tentorium mild thickening [2 mm] suspicios for mild subdural hematoma. Repeat head CT showed a stable minimal subdural hematoma along the right and left cerebellar tentorium. Neurology, Dr. Simmons was consulted and recommended interval CT scan in 24 hours. Plan: - Neuro checks q 4H - Head of bed elevated to 30 degrees - Swallow eval and bedside swallow screen ordered - PT/OT referrals placed - Seizure precautions in place - Interval head CT non- contrast ordered for 3 pm on 03/12/2024 - HbA1C, Lipid panel, TSH ordered - PRN Acetaminophen 650mg to avoid hyperthermia - PRN Labetaol 10 mg IV Q2 hrly for SBP > 150. Tight control of blood pressure to avoid hemorrhage - DVT Prophylaxis with SCDs - Neurology, Dr Simmons consulted and is closely following the case. Appreciate recommendations. 5. Essential hypertension 6. Hyperlipidemia On admission BP 123/68. Home medication losartan 50 Mg p.o. twice daily and atorvastatin 40 Mg p.o. at bedtime Plan: ? Resumed home medication losartan 50 Mg p.o. twice daily ? Resumed home medication atorvastatin 40 Mg p.o. at bedtime 7. Kuo-gsehbkt-mmswwfbqo diabetes mellitus type 2 Last HbA1c 7.2% February 2024 Home medication Synjardy 1 tab p.o. daily and Tradjenta 5 Mg p.o. daily. Plan: ? Low consistent carb diet ? SSI to cover for any blood glucose spikes 8. Osteoarthritis 9. Osteoporosis Patient takes Celebrex 200 Mg p.o. twice daily as needed as home medication and Aldendronate 70 Mg p.o. weekly Plan: ? Will start patient on hydrocodone/acetaminophen 5/325 1 tab p.o. every 4 hourly as needed for pain Health maintenance: Disposition: Neuro watch. Interval Head CT on 03/12/2024 Diet: Low consistent carb and Cardiac Lines: pIVs GI Prophylaxis: Pantoprazole Thrombo Prophylaxis: SCDs Code status: DNR Time Spent with Patient Time attestation: Total time spent providing and/or coordinating discharge services: 30 min Exam Vital Signs Temp Pulse Resp BP Pulse Ox O2 Del Method 97.3 F 88 16 106/74 95 Room Air 03/13/24 12:00 03/13/24 12:00 03/13/24 12:00 03/13/24 12:00 03/13/24 12:00 03/13/24 12:00 Narrative Exam GENERAL: A&Ox3 . Awake, Not in acute distress NEURO: no focal neurological deficits HEENT: Atraumatic, Normocephalic. mucous membranes moist. Eyes open, symmetrical, & clear HEART: Normal Heart Sounds LUNGS: Clear to auscultation with no wheezing or crackles. ABDOMEN: soft, non-distended, non-tender, bowel sounds heard, no guarding or rebound tenderness SKIN: No Rash or ecchymoses, 3 x 5 cm redness and bruising occipital region, no signs of hemorrhage. EXTREMITIES: No edema, tenderness, able to move all 4 extremities, pedal pulses palpated Discharge Plan Plan Patient Disposition: HOME (Self Care) Care Plan Goals: Patient is recommended to follow-up with their primary doctor within 1 week, and follow-up with neurologist Dr Simmons within 2 weeks of discharge from hospital. Patient found to have A1c of 7.2, recommend starting metformin 500 mg twice daily and is recommended to follow-up with primary physician in regards to diabetic medications. Patient is recommended to wear socks with rubber billiard parlor manager underneath, slowly change positions from lying to rising or sitting to standing. Case of worsening symptoms, please return to the emergency room Se recomienda que el paciente realice un seguimiento con kaba m?dico de atenci?n primaria dentro de 1 semana y un seguimiento con el neur?logo Dr. Simmons dentro de las 2 semanas posteriores al [facility]. Al paciente se le encontr? A1c de 7.2, se recomienda iniciar metformina 500 mg dos veces al d?a y se recomienda realizar un seguimiento con el m?dico de atenci?n primaria con respecto a los medicamentos para la diabetes. Se recomienda que el paciente use calcetines con agarraderas de goma debajo y cambie lentamente de posici?n de acostado a levantado o de sentado a parado. En sarah de que los s?ntomas empeoren, regrese a la parul de emergencias. Prescriptions/Referrals Prescriptions/Med Rec: Continued losartan 50 mg Tablet 50 mg PO QDAY alendronate [Fosamax] 70 mg Tablet 70 mg PO QWEEK atorvastatin 40 mg tablet 40 mg PO HS Patient Comments: TOME RAE TABLETA POR V A ORAL EN LA NOCHE ferrous sulfate 325 mg (65 mg iron) tablet 325 mg QDAY Patient Comments: TOME 1 TABLETA POR V A ORAL DOS VECES AL D A cholecalciferol (vitamin D3) 50 mcg (2,000 unit) capsule 50 mcg QDAY Patient Comments: TOME RAE C PSULA TODOS LOS D Referrals: Violet Piña MD [Primary Care Provider] - Patient/Caregiver Discharge Instructions Education Materials: Bruises (Contusions), What Is a Subdural Hematoma? Print Language: Portuguese Stand Alone Forms: Nanci Award Info., Patient Portal Info Letter Discharge Order Discharge Orders: Discharge (Routine); Ordered 03/13/24 Ordered By: Duncan Duran Quality Discharge Quality Measures VTE prophylaxis
== END 2024-03-13 13:10 | disposition home or self-care (01) | DRG 84 ==
LOC: SERX 18:17 → SERHOLD 20:30 → S2NX 21:41 → S3NX 03-13 00:54
PROVIDERS: Nurse Practitioner Primary Care; Admitting Provider Internal Medicine; Emergency Provider Emergency Medicine; PCP Family Medicine; Visit Provider Internal Medicine
DX: S06.5XAA Traumatic subdural hemorrhage with loss of consciousness status unknown, initial encounter (principal); I10 Essential (primary) hypertension; E11.9 Type 2 diabetes mellitus without complications; K21.9 Gastro-esophageal reflux disease without esophagitis; M19.90 Unspecified osteoarthritis, unspecified site; M81.0 Age-related osteoporosis without current pathological fracture; E78.5 Hyperlipidemia, unspecified; R40.2362 Coma scale, best motor response, obeys commands, at arrival to emergency department; R40.2142 Coma scale, eyes open, spontaneous, at arrival to emergency department; R40.2252 Coma scale, best verbal response, oriented, at arrival to emergency department; Z66 Do not resuscitate; Z79.84 Long term (current) use of oral hypoglycemic drugs; Z79.899 Other long term (current) drug therapy; Z79.83 Long term (current) use of bisphosphonates; Z90.49 Acquired absence of other specified parts of digestive tract; W01.0XXA Fall on same level from slipping, tripping and stumbling without subsequent striking against object, initial encounter; Y93.01 Activity, walking, marching and hiking
CPT/HCPCS: 36415; 70450; 71046; 72125; 80048; 80053; 80061; 83735; 84100; 84443; 84484; 85025; 85610; 85730; 93005; 94664; 96372; 96374; 96375; 97161; 99285; J1815; J2270; J2405; A9270

== ENCOUNTER → 2024-09-30 | Outpatient (CLI) | payer MEDICARE, MEDICAID, SELFPAY ==
--- NOTE | 2024-09-30 14:30 | XR_ITS ---
Examination: Screening digital mammography, bilateral Computer aided detection 3-D breast Tomosynthesis, bilateral Date and time of exam: September 30, 2024 1413 hours Compared to mammograms dating to September 02, 2016 Indication: Screening Technique: Nonmagnified MLO, CC views of the breasts to been obtained, reconstructed from 3-D Tomosynthesis images. R2 computer aided detection program utilized for evaluation of suspicious masses and/or abnormal calcifications. 3-D Tomosynthesis images obtained. Findings: Scattered areas of fibroglandular density. Benign calcifications. No interval suspicious masses Impression: BI-RADS category II: Benign Findings. Recommend 1 year follow-up mammogram.
== END | disposition home or self-care (01) ==
LOC: CDIM 14:06
PROVIDERS: Referring Provider Physician Assistant Medical; Visit Provider Physician Assistant Medical
DX: Z12.31 Encounter for screening mammogram for malignant neoplasm of breast (principal); R92.323 Mammographic fibroglandular density, bilateral breasts; R92.1 Mammographic calcification found on diagnostic imaging of breast
CPT/HCPCS: 77063; 77067

== ENCOUNTER → 2025-01-05 | Outpatient (CLI) | payer MEDICARE, MEDICAID, SELFPAY ==
--- NOTE | 2025-01-05 14:00 | XR_ITS ---
Examination: Bone densitometry Date and time of exam: January 05, 2025, 1412 hours INDICATIONS: Menopause age 50 Technique: Lumbar spine and hip total bone mineralization values of an calculated. Peak reference and age match control results have been displayed. Findings: Lumbar spine total bone mineralization is 1.019 gm/cm2. This is 0.3 standard deviations below peak reference. This is 1.8 standard deviations above age-matched controls. Hip total bone mineralization is 0.930 gm/cm2 This is 22 standard deviations below peak reference. This is 1.2 standard deviations above age-matched controls Impression: There is normal mineralization based on lumbar spine measurements. There is normal mineralization based on hip measurements Lumbar mineralization is increased 4.5% compared with December 27, 2020 Hip mineralization is increased 2.8% compared with December 27, 2020
== END | disposition home or self-care (01) ==
LOC: CDIM 13:42
PROVIDERS: PCP Physician Assistant Medical; Referring Provider Physician Assistant Medical; Visit Provider Physician Assistant Medical
DX: M89.8X0 Other specified disorders of bone, multiple sites (principal)
CPT/HCPCS: 77080